=== PATIENT | male | born 1985 | race Two or more races ===

== ENCOUNTER → 2017-05-02 | Outpatient (REF) | payer MEDICARE, OTHER | LOC: M SMT 14:03 | DX: Z30.2 Encounter for sterilization (principal) | CPT/HCPCS: 88302 ==

== ENCOUNTER → 2017-06-28 | Outpatient (REF) | payer MEDICARE, OTHER ==
[2017-06-28 10:51] LABS: SEMEN APPEARANCE OPAQUE (OPAQUE); SEMEN VISCOSITY LIQUID (LIQUID); SEMEN VOLUME 3.3 ml (4.0-5.0); WBC CONCENTRATION >1 M/ml (<=1 M/ml)
[2017-06-28 10:53] LABS: IMMMOTILE SPERM CENTRIFUGED ABSENT (ABSENT); IMMOTILE SPERM ABSENT (ABSENT); MOTILE SPERM ABSENT (ABSENT); MOTILE SPERM CENTRIFUGED ABSENT (ABSENT)
[2017-06-28 10:54] LABS: SPERM ABNORMAL FORMS WBC'S NOTED
== END ==
LOC: M SMT 10:43
DX: Z30.2 Encounter for sterilization (principal)
CPT/HCPCS: 89321

== ENCOUNTER → 2018-05-10 | Outpatient (REF) | payer MEDICARE, OTHER ==
[2018-05-10 13:57] LABS: BLOOD UREA NITROGEN 13 MG/DL (7-18); CREATININE FOR GFR 1.03 MG/DL (0.70-1.30); GLOMERULAR FILTRATION RATE > 60.0 (>60); RHEUMATOID FACTOR QUANT < 10.0 IU/ML (<15.0)
[2018-05-10 14:00] LABS: TOTAL 25(OH) VITAMIN D 18.4 NG/ML (30.0-100.0); VITAMIN B12 LEVEL 775 PG/ML
[2018-05-10 17:08] LABS: FOLATE > 24.0 NG/ML
[2018-05-11 14:55] LABS: ANTINUCLEAR ANTIBODIES DIRECT Negative (Negative)
== END ==
LOC: M LABNEURO 08:55
PROVIDERS: ATTEND Psychiatry & Neurology Neurology
DX: R51 Headache (principal); R42 Dizziness and giddiness

== ENCOUNTER → 2023-05-10 | Outpatient (REF) | LOC: M PLAIMG 11:07 | PROVIDERS: ATTEND Internal Medicine | DX: M47.892 Other spondylosis, cervical region (principal); M50.922 Unspecified cervical disc disorder at C5-C6 level; M50.923 Unspecified cervical disc disorder at C6-C7 level ==

== ENCOUNTER → 2024-03-21 | Outpatient (CLI) | payer MEDICARE, OTHER | LOC: M RAD 10:23 | PROVIDERS: ATTEND Physician Assistant | DX: J32.8 Other chronic sinusitis (principal) ==

== ENCOUNTER 2025-01-19 11:41 | Emergency (ER) | payer OTHER ==
[2025-01-19 12:33] LABS: PLATELET COUNT, AUTOMATED 337 10^3/uL (150-450)
[2025-01-19] MEDS ORDERED: CLONI1TA PO (12:41)
[2025-01-19] MEDS ORDERED: VENL225T PO (12:41)
[2025-01-19] MEDS ORDERED: NEUR300C PO (12:41)
[2025-01-19] MEDS ORDERED: AMIT25TA19 PO (12:41)
[2025-01-19 13:00] LABS: AMPHETAMINES LEVEL URINE NEGATIVE (NEGATIVE); BARBITURATES URINE NEGATIVE (NEGATIVE); BENZODIAZEPINES URINE NEGATIVE (NEGATIVE); COCAINE METABOLITE URINE NEGATIVE (NEGATIVE)
[2025-01-19 13:01] LABS: CANNABINOIDS URINE NEGATIVE (NEGATIVE); METHADONE URINE NEGATIVE (NEGATIVE); OPIATES URINE NEGATIVE (NEGATIVE); PHENCYCLIDINE URINE NEGATIVE (NEGATIVE)
[2025-01-19 13:03] LABS: ETHYL ALCOHOL (ETHANOL) 0.003 % (0.000-0.010)
[2025-01-19 13:05] LABS: ALT/SGPT 38 U/L (7.0-40); AST/SGOT 22 U/L (<34); CALCIUM LEVEL 9.5 MG/DL (8.5-10.1); CARBON DIOXIDE LEVEL 30 MMOL/L (20-31); CHLORIDE LEVEL 103 MMOL/L (98-107); CREATININE FOR GFR 0.85 MG/DL (0.70-1.30); GLOMERULAR FILTRATION RATE > 90.0 (>60); POTASSIUM SERUM 3.8 MMOL/L (3.5-5.1); SALICYLATE LEVEL < 3.0 MG/DL (<30); SODIUM LEVEL 142 MMOL/L (136-145)
[2025-01-19 16:15] VITALS: BP 172/107; TEMP 97.7; O2SAT 100
== END 2025-01-19 16:27 | disposition home or self-care (01) ==
LOC: M ED 11:41
DX: F32.A Depression, unspecified (principal); F43.10 Post-traumatic stress disorder, unspecified; F90.9 Attention-deficit hyperactivity disorder, unspecified type; F41.9 Anxiety disorder, unspecified; Z87.891 Personal history of nicotine dependence; Z88.0 Allergy status to penicillin; Z79.899 Other long term (current) drug therapy